=== PATIENT | male | born 1950 | race Caucasian/White ===

== ENCOUNTER 2017-03-06 12:14 | Observation (INO) | payer MEDICARE ==
[~2017-03-06] VITALS: Ht 175.3 cm; Wt 87.0 kg
[2017-03-06 12:47] LABS: BASOPHIL % 0.6 % (0.0-2.0); EOSINOPHIL # 0.2 TH/MM3 (0-0.4); EOSINOPHIL % 3.3 % (0.0-4.0); HEMATOCRIT 35.3 % (39.0-51.0); HEMO FLAGS DIFF FINAL; LYMPH % 26.7 % (9.0-44.0); LYMPHOCYTE # 1.3 TH/MM3 (1.0-4.8); MEAN CORPUSCULAR HGB CONC 33.8 % (32.0-36.0); NEUT % 63.4 % (16.0-70.0); PLATELET COUNT 127 TH/MM3 (150-450); RED BLOOD COUNT 4.25 MIL/MM3 (4.50-5.90); RED CELL DISTRIBUTION WIDTH 13.4 % (11.6-17.2); WHITE BLOOD COUNT 4.8 TH/MM3 (4.0-11.0)
[2017-03-06 12:51] VITALS: BP 146/72; PULSE 57; RESP 16; TEMP 98.4; O2SAT 97
[2017-03-06 12:53] VITALS: O2SAT 97
[2017-03-06 12:56] LABS: CHLORIDE 108 MEQ/L (98-107); POTASSIUM 3.8 MEQ/L (3.5-5.1); SODIUM (NA) 142 MEQ/L (136-145)
[2017-03-06 13:00] LABS: ANION GAP 8 MEQ/L (5-15); BICARBONATE 26.1 MEQ/L (21.0-32.0); MAGNESIUM 2.2 MG/DL (1.5-2.5)
[2017-03-06 13:01] LABS: APTT (PATIENT) 25.4 SEC (24.3-30.1); BLOOD UREA NITROGEN 18 MG/DL (7-18); PROTHROMBIN TIME - PATIENT 10.6 SEC (9.8-11.6)
[2017-03-06 13:03] LABS: ALT (GPT) 20 U/L (12-78); AST (GOT) 17 U/L (15-37); GLOMERULAR FILTRATION RATE 75 ML/MIN (>89)
[2017-03-06 13:05] LABS: TOTAL BILIRUBIN ADULT 0.6 MG/DL (0.2-1.0)
[2017-03-06 13:06] LABS: ALKALINE PHOSPHATASE 92 U/L (45-117)
[2017-03-06 13:07] LABS: CREATINE KINASE 65 U/L (39-308)
--- NOTE | 2017-03-06 13:07 | PD ---
HPI Chief Complaint: Chest Pain Time Seen by Provider: 12:45 Travel History International Travel<30 days: No Contact w/Intl Traveler<30days: No Traveled to known affect area: No History of Present Illness HPI Patient 66-year-old male presents emergency department for left shoulder pain. He states he has a history of rotator cuff problems in the past. He initially thought his current problems were from rotator cuff then began having tightness sensation in the middle of his chest in the radiation of his shoulder pain went down all the way to his elbow. States has a history of high blood pressure and high cholesterol but no diabetes. Denies a smoking history. No history of cardiac catheterization or stress test and has never seen a cook pressure before. States currently his tightness has resolved. Denies any abdominal pain nausea vomiting headache diarrhea. Stasis or leg swelling. PFSH Past Medical History High Cholesterol: Yes Diminished Hearing: No Hypertension: Yes Influenza Vaccination: No ?: Not Past Surgical History Eye Surgery: Yes (Bilat cataracts) Social History Alcohol Use: No Tobacco Use: No Substance Use: No Allergies-Medications (Allergen,Severity, Reaction): Coded Allergies: No Known Allergies (Unverified , 03/06/17) Reported Meds & Prescriptions Reported Meds & Active Scripts Active Reported Simvastatin 20 Mg Tab 20 Mg PO DAILY Enalapril (Enalapril Maleate) 10 Mg Tab 10 Mg PO DAILY Review of Systems Except as stated in HPI: all other systems reviewed are Neg Physical Exam Narrative GENERAL: Well-developed well-nourished no apparent distress. SKIN: Focused skin assessment warm/dry. HEAD: Atraumatic. Normocephalic. EYES: Pupils equal and round. No scleral icterus. No injection or drainage. ENT: No nasal bleeding or discharge. Mucous membranes pink and moist. NECK: Trachea midline. No JVD. CARDIOVASCULAR: Regular rate and rhythm. No murmur appreciated. 2+ bilateral equal pulses in all 4 extremity's. RESPIRATORY: No accessory muscle use. Clear to auscultation. Breath sounds equal bilaterally. GASTROINTESTINAL: Abdomen soft, non-tender, nondistended. Hepatic and splenic margins not palpable. MUSCULOSKELETAL: No obvious deformities. No clubbing. No cyanosis. No edema. NEUROLOGICAL: Awake and alert. No obvious cranial nerve deficits. Motor grossly within normal limits. Normal speech. PSYCHIATRIC: Appropriate mood and affect; insight and judgment normal. Data Data Last Documented VS Vital Signs Date Time Temp Pulse Resp B/P Pulse Ox O2 Delivery O2 Flow Rate FiO2 03/06/17 13:38 53 126/76 96 03/06/17 12:51 98.4 16 Orders Ckmb (Isoenzyme) Profile (03/06/17 12:26) Complete Blood Count With Diff (03/06/17 12:26) Comprehensive Metabolic Panel (03/06/17 12:26) Magnesium (Mg) (03/06/17 12:26) Prothrombin Time / Inr (Pt) (03/06/17 12:26) Act Partial Throm Time (Ptt) (03/06/17 12:26) Troponin I (03/06/17 12:26) Lipase (03/06/17 12:26) Chest, Single Ap (03/06/17 12:26) Ecg Monitoring (03/06/17 12:26) Iv Access Insert/Monitor (03/06/17 12:26) Oximetry (03/06/17 12:26) Oxygen Administration (03/06/17 12:26) Aspirin Chew (Aspirin Chew) (03/07/17 09:00) Admit Order (Ed Use Only) (03/06/17 ) Labs Laboratory Tests Test 03/06/17 12:32 White Blood Count 4.8 TH/MM3 Red Blood Count 4.25 MIL/MM3 Hemoglobin 11.9 GM/DL Hematocrit 35.3 % Mean Corpuscular Volume 83.0 FL Mean Corpuscular Hemoglobin 28.0 PG Mean Corpuscular Hemoglobin 33.8 % Concent Red Cell Distribution Width 13.4 % Platelet Count 127 TH/MM3 Mean Platelet Volume 7.3 FL Neutrophils (%) (Auto) 63.4 % Lymphocytes (%) (Auto) 26.7 % Monocytes (%) (Auto) 6.0 % Eosinophils (%) (Auto) 3.3 % Basophils (%) (Auto) 0.6 % Neutrophils # (Auto) 3.0 TH/MM3 Lymphocytes # (Auto) 1.3 TH/MM3 Monocytes # (Auto) 0.3 TH/MM3 Eosinophils # (Auto) 0.2 TH/MM3 Basophils # (Auto) 0.0 TH/MM3 CBC Comment DIFF FINAL Differential Comment Prothrombin Time 10.6 SEC Prothromb Time International 1.0 RATIO Ratio Activated Partial 25.4 SEC Thromboplast Time Sodium Level 142 MEQ/L Potassium Level 3.8 MEQ/L Chloride Level 108 MEQ/L Carbon Dioxide Level 26.1 MEQ/L Anion Gap 8 MEQ/L Blood Urea Nitrogen 18 MG/DL Creatinine 1.00 MG/DL Estimat Glomerular Filtration 75 ML/MIN Rate Random Glucose 95 MG/DL Calcium Level 8.6 MG/DL Magnesium Level 2.2 MG/DL Total Bilirubin 0.6 MG/DL Aspartate Amino Transf 17 U/L (AST/SGOT) Alanine Aminotransferase 20 U/L (ALT/SGPT) Alkaline Phosphatase 92 U/L Total Creatine Kinase 65 U/L Troponin I LESS THAN 0.02 NG/ML Total Protein 7.4 GM/DL Albumin 4.1 GM/DL Lipase 107 U/L MDM Medical Decision Making Medical Screen Exam Complete: Yes Emergency Medical Condition: Yes Differential Diagnosis ACS, AMI, NSTEMI, STEMI, pneumonia, GERD Narrative Course Patient roomed emerged permit, initial EKG and troponin negative, chest x-ray negative. Patient certainly with risk factors including age high blood pressure high cholesterol and I have highly recommended to him that he stay to have a stress test and troponin trending. Initially he was agreeable. Patient was discussed with for observation to the chest pain center. Approximately an hour and a half after this disposition was made the patient approached me at my desk fully dressed and stated he had to leave he has had a job interview tomorrow in [place]. I had a lengthy discussion with him about the risks of leaving AGAINST MEDICAL ADVICE for chest pain including , permanent disability, heart failure decreased exercise tolerance. He verbalized understanding to all the above and accepted the risks. I recommended that he could return to the emergency department at any time should his chest pain return. Also recommended follow-up with primary care physician. Recommend that he continue taking aspirin daily. A formal AMA paper was signed and added the chart. Diagnosis Primary Impression: Chest pain Qualified Code: R07.9 - Chest pain, unspecified type Disposition: AGAINST MEDICAL ADVICE Condition: Stable Ubaldo Chávez MD Mar 06, 2017 13:07
--- NOTE | 2017-03-06 13:15 | RADRPT ---
EXAM DATE/TIME: 03/06/2017 13:01 [facility] COMPARISON: No previous studies available for comparison. INDICATIONS : Chest pain last night. MEDICAL HISTORY : None. SURGICAL HISTORY : None. ENCOUNTER: Initial ACUITY: 2 days PAIN SCORE: 5/10 LOCATION: Bilateral chest FINDINGS: A single view of the chest demonstrates the lungs to be symmetrically aerated without evidence of mas s, infiltrate or effusion. The cardiomediastinal contours are unremarkable. Osseous structures are intact. CONCLUSION: No acute disease. Nnamdi Galan MD on March 06, 2017 at 13:13 Board Certified Radiologist. This report was verified electronically.
[2017-03-06] MEDS ORDERED: ENAL10TA PO (13:25)
[2017-03-06] MEDS ORDERED: SIMV20TA PO (13:25)
[2017-03-06 13:38] VITALS: BP 126/76; PULSE 53; O2SAT 96
[2017-03-06 15:23] VITALS: BP 147/68; PULSE 55; O2SAT 97
[2017-03-06] MEDS ORDERED: MORPHINE SULFATE 4 MG/ML INJ IV PRN (15:45)
[2017-03-06] MEDS ORDERED: NITROGLYCERIN 0.4 MG SL 25 TABS/BTL SL PRN (15:45)
[2017-03-06] MEDS ORDERED: HEPARIN SODIUM - SQ 10,000 UNITS/ML VIAL SQ SCH (18:00)
[2017-03-06] MEDS ORDERED: PRAVASTATIN SOD 10 MG TAB PO SCH (21:00)
[2017-03-06] MEDS ORDERED: METOPROLOL TARTRATE 25 MG TAB PO SCH (21:00)
[2017-03-07] MEDS ORDERED: ASPIRIN EC 325 MG TABEC PO SCH (09:00)
[2017-03-07] MEDS ORDERED: NON-FORMULARY DRUG (Simvastatin 20 MG) PO SCH (09:00)
[2017-03-07] MEDS ORDERED: ENALAPRIL MALEATE 10 MG TAB PO SCH (09:00)
[2017-03-07] MEDS ORDERED: ASPIRIN 81 MG CHEW TAB CHEW SCH (09:00)
--- NOTE | 2017-03-07 10:28 | EKG ---
Date Performed: 03/06/2017 Time Performed: 12:23:27 PTAGE: 66 years EKG: SINUS BRADYCARDIA BORDERLINE ECG INTERPRETATION BASED ON A DEFAULT AGE OF 40 YEARS NO PREVIOUS TRACING DOCTOR: Jorge Rea Interpretating Date/Time 03/07/2017 10:27:01
== END 2017-03-06 16:25 | disposition left against medical advice (07) ==
LOC: PHED 12:14 → PHEDA 14:12
PROVIDERS: ADMIT Internal Medicine; ATTEND Internal Medicine
DX: R07.9 Chest pain, unspecified (principal); I10 Essential (primary) hypertension; E78.00 Pure hypercholesterolemia, unspecified; Z53.21 Procedure and treatment not carried out due to patient leaving prior to being seen by health care provider
CPT/HCPCS: 71010; 80053; 82550; 83690; 83735; 84484; 85025; 85610; 85730; 93005; 99285; G0378